=== PATIENT | female | born 1930 | race Caucasian/White ===

== ENCOUNTER → 2019-01-31 | Outpatient (CLI) | payer MEDICARE, BC ==
--- NOTE | 2019-01-31 17:23 | Diagnostic Imaging Report ---
Renal ultrasound dated 01/31/2019. History: Renal cyst Comparison: 09/27/2015 Discussion: Transverse and longitudinal images of the kidneys were obtained demonstrating normal renal sizes and echogenicities. There is no evidence of hydronephrosis, mass or renal calculus. The right kidney measures 9.9 x 3.7 x 4.6 cm and the left kidney measures 9.2 x 4.2 x 2.8 cm. Right renal cortex measures 1 cm and the left cortex measures 1.2 cm. Left renal cyst previously identified is not seen on this study. The urinary bladder is unremarkable. There is no evidence of free fluid. IMPRESSION: Normal renal ultrasound. Signed by: Dr. Terence Malone DO on 01/31/2019 5:19 PM
== END ==
LOC: US 14:22
PROVIDERS: ATTEND Urology
DX: N28.1 Cyst of kidney, acquired (principal)
CPT/HCPCS: 76770

== ENCOUNTER 2019-08-15 16:14 | Inpatient (IN) | payer MEDICARE, BC ==
[~2019-08-15] VITALS: Ht 160 cm; Wt 51.7 kg
--- OUTSIDE RECORDS SUMMARY | 2019-08-15 16:16 | XMS REPORT | Clinical Summary ---
Author Author [facility] Address Unknown Phone Unavailable Care Team Providers Care Disaster Response Director Name Role Phone Miguel Brush MD PCP Allergies Comments Active Allergy Reactions Severity Noted Date Zolpidem 10/15/2017 Amiodarone 10/15/2017 Aspirin 10/15/2017 IV contrast Iodine 10/15/2017 Lidocaine 10/15/2017 Penicillins 10/15/2017 Medications End Date Status Medication Sig Dispensed Refills Start Date Active losartan (COZAAR) 25 MG Take 25 mg by 0 tablet mouth 2 (two) 7 times a day. Active potassium chloride Take 10 mEq 0 (KLOR-CON) 10 MEQ CR by mouth 7 tablet every morning. Active metoprolol succinate XL Take 25 mg by 0 (TOPROL-XL) 25 mg 24 hr mouth 2 (two) 7 tablet times a day. Active XARELTO 15 mg tablet Take 15 mg by 0 mouth daily. 7 Active pantoprazole (PROTONIX) Take 40 mg by 0 40 MG EC tablet mouth every 7 morning. Active furosemide (LASIX) 20 mg Take 20 mg by 0 tablet mouth every 7 morning. Active SPIRIVA WITH HANDIHALER Place 1 puff 0 18 mcg per inhalation into inhaler 7 capsule and inhale every morning. Active PROLIA 60 mg/mL syringe Inject 60 mg 0 syringe as directed 7 every 6 (six) months. Active Problems Problem Noted Date Dehydration 10/15/2017 Family History Medical History Relation Name Comments Cancer Brother Hernia Brother Cancer Father Stroke Father Cancer Mother Stroke Mother COPD Sister Mental illness Sister Relation Name Status Comments Brother Father Mother Sister Social History Date Tobacco Use Types Packs/Day Years Used Quit: 10/15/1981 Former Smoker Smokeless Tobacco: Never Used Drinks/Week oz/Week Comments Alcohol Use stopped drinking 1980 No Sex Assigned at Date Recorded Not on file Industry Job Start Date Occupation Not on file Not on file Not on file Travel End Travel History Travel Start No recent travel history available. Last Filed Vital Signs Not on file Plan of Treatment Health Maintenance Due Date Last Done Comments SHINGLES VACCINES (#1) 1981 65+ PNEUMOCOCCAL VACCINE 1996 (1 of 2 - PCV13) INFLUENZA VACCINE 06/19/2019 Results Not on fileafter 08/14/2018 Insurance Type Payer Benefit Subscriber ID Effective Phone Address Plan / Dates Group Medicare MEDICARE MEDICARE xxxxxxxxxx 1996-P [place], PART A AND resent [place] B PPO BCBS BCBS xxxxxxxxxxxx 2012-P CHOICE resent PPO/PETE JAMES PPO ([place]) [place] [address] Advance Directives For more information, please contact: [phone] Patient Director Of Field Coordination Explanation Type Date Recorded Advance Directives, 10/15/2017 3:27 PM Living Will and Medical Power of Entry Level Assistant Manager Date Inactivated Comments Code Status Date Activated 10/16/2017 6:39 PM Full Code 10/15/2017 6:15 PM Code Status decision reached by: Patient
--- OUTSIDE RECORDS SUMMARY | 2019-08-15 16:17 | XMS REPORT ---
Author Author [facility] Address Unknown Phone Unavailable Care Team Providers Care [employer] Name Role Phone BRE JACK Unavailable Unavailable Payers Payer Name Policy Type Policy Number Effective Date Expiration Date Problems This patient has no known problems. Allergies, Adverse Reactions, Alerts Allergy Name Allergy Type Status Severity Reaction(s) Onset Date Inactive Date Treating Clinician Comments hydralazine DA Active 2018-12-24 00:00:00 Iodinated Contrast- Oral and IV Dye DA Active 2018-06-20 00:00:00 lidocaine DA Active ID 2018-06-20 00:00:00 aspirin DA Active ID 2018-06-20 00:00:00 clindamycin DA Active ID 2018-06-20 00:00:00 azithromycin DA Active 2018-06-20 00:00:00 penicillin G DA Active ID 2018-06-20 00:00:00 ALMONDS DA Active U 2008-08-06 00:00:00 CAFFEINE DA Active U 2008-08-06 00:00:00 CHILI PEPPERS DA Active U 2008-08-06 00:00:00 CITRUS FRUITS DA Active U 2008-08-06 00:00:00 NUTS - ALL TYPES DA Active U 2008-08-06 00:00:00 SHELLFISH DA Active U 2008-08-06 00:00:00 SHRIMP DA Active U 2008-08-06 00:00:00 Medications This patient has no known medications. Results Test Description Test Time Test Comments Text Results Atomic Results Result Comments US RENAL RETROPERITONEAL COMP 2019-01-31 17:17:[address] [address] Patient Name: MYRON ROQUE MR #: [id number] : 1930 Age/Sex: 88/F Req #: [id number] [facility] Physician: Ordered by: BRE JACK MD Report #: [id number] Location: Room/Bed: Procedure: [id number] US/US RENAL RETROPERITONEAL COMP Exam Date: 01/31/19 Exam Time: 1454 REPORT STATUS: Signed Renal ultrasound dated 01/31/2019. History: Renal cyst Comparison: 09/27/2015 Discussion: Transverse and longitudinal images of the kidneys were obtained demonstrating normal renal sizes and echogenicities. There is no evidence of hydronephrosis, mass or renal calculus. The right kidney measures 9.9 x 3.7 x 4.6 cm and the left kidney measures 9.2 x 4.2 x 2.8 cm. Right renal cortex measures 1 cm and the left cortex measures 1.2 cm. Left renal cyst previously identified is not seen on this study. The urinary bladder is unremarkable. There is no evidence of free fluid. IMPRESSION: Normal renal ultrasound. Signed by: Dr. Phillip Malone DO on 01/31/2019 5:19 PM Dictated By: PHILLIP MALONE DO 18 Transcribed By: KARO on 01/31/191718 COPY TO: BRE JACK MD CBC W/AUTO DIFF 2018-12-26 07:37:00 WHITE BLOOD CELL (test code=WBC) 6.53 x10 3/uL 4.5-11.0 RED BLOOD CELL (test code=RBC) 3.92 x10 6/uL 3.54-5.02 HEMOGLOBIN (test code=HGB) 12.5 g/dL 11.0-15.0 HEMATOCRIT (test code=HCT) 38.5 % 33.0-45.0 MEAN CELL VOLUME (test code=MCV) 98.2 fL 81.0-99.0 MEAN CELL HGB (test code=MCH) 31.9 pg 27.0-33.0 MEAN CELL HGB CONCETRATION (test code=MCHC) 32.5 g/dL 33.0-37.0 RED CELL DISTRIBUTION WIDTH CV (test code=RDW) 13.6 % 11.5-14.5 RED CELL DISTRIBUTION WIDTH SD (test code=RDW-SD) 49.1 fL 37.0-54.0 PLATELET COUNT (test code=PLT) 239 x10 3/uL 150-400 MEAN PLATELET VOLUME (test code=MPV) 10.4 fL 7.0-9.0 NEUTROPHIL % (test code=NT%) 46.2 % 56.0-77.0 IMMATURE GRANULOCYTE % (test code=IG%) 0.2 % 0.0-2.0 LYMPHOCYTE % (test code=LY%) 34.8 % 14.0-32.0 MONOCYTE % (test code=MO%) 9.3 % 4.8-9.0 EOSINOPHIL % (test code=EO%) 8.6 % 0.3-3.7 BASOPHIL % (test code=BA%) 0.9 % 0.0-2.0 NUCLEATED RBC % (test code=NRBC%) 0.0 % 0-0 NEUTROPHIL # (test code=NT#) 3.02 x10 3/uL 2.0-7.6 IMMATURE GRANULOCYTE # (test code=IG#) 0.01 x10 3/uL 0.00-0.03 LYMPHOCYTE # (test code=LY#) 2.27 x10 3/uL 1.0-3.8 MONOCYTE # (test code=MO#) 0.61 x10 3/uL 0.1-0.8 EOSINOPHIL # (test code=EO#) 0.56 x10 3/uL 0.0-0.2 BASOPHIL # (test code=BA#) 0.06 x10 3/uL 0.0-0.2 NUCLEATED RBC # (test code=NRBC#) 0.00 x10 3/uL 0.0-0.1 MANUAL DIFF REQUIRED (test code=MDIFF) NO BASIC METABOLIC [id number] 06:13:00* Test Item Value Reference Range Comments SODIUM (test code=NA) 139 mEq/L 134-147 POTASSIUM (test code=K) 3.9 mEq/L 3.4-5.0 CHLORIDE (test code=CL) 106 mEq/L 100-108 CARBON DIOXIDE (test code=CO2) 29 mEq/L 21-33 ANION GAP (test code=GAP) 8 0-20 GLUCOSE (test code=GLU) 82 mg/dL 70-110 BLOOD UREA NITROGEN (test code=BUN) 23 mg/dL 7-18 GLOMERULAR FILTRATION RATE (test code=GFR) 59.2 70-80 Units of measure=ml/min/1.73 m2 CREATININE (test code=CREAT) 0.9 mg/dL 0.6-1.3 CALCIUM (test code=CA) 8.3 mg/dL 8.0-10.5 LIPID PROFILE (CORONARY RISK)2018-12-25 17:00:00* Test Item Value Reference Range Comments TRIGLYCERIDES (test code=TRIG) 91 mg/dL 40-150 CHOLESTEROL (test code=CHOL) 181 mg/dL <200 CHOLESTEROL/HDL RATIO (test code=CHOLHDL) 2.78 RATIO 3.27-4.44 RISK ASSOCIATED WITH CHOL/HDL RATIOS: RISK MALE FEMALE1/2 AVERAGE 3.43 3.27AVERAGE 4.97 4.442X AVERAGE 9.55 7.053X AVERAGE 23.39 11.04 NOTE THAT THE REFERENCE VALUE IS RELATEDTO RISK LEVELS RECOMMENDED BY THE NATL.HEART, LUNG, AND BLOOD INST. HDL CHOLESTEROL (test code=HDL) 65.0 mg/dL 39-96 LIPOPROTEIN LDL (test code=LDL) 103 mg/dL 0-100 <100 [id number] NEAR OPTIMAL/ABOVE [id number] HIGH>FC=804 VERY HIGH*Guidelines provided by the National Cholesterol EducationProgram Adult Treatment Panel III [id number] 17:00:00* Test Item Value Reference Range Comments MAGNESIUM (test code=MAG) 1.90 mg/dL 1.8-2.4 VITAMIN D [id number] 17:00:00* Test Item Value Reference Range Comments VITAMIN D 25-HYDROXY (test code=VITD25) 47.9 ng/mL 30-100 B-TYPE NATRIURETIC [id number] 16:39:00* Test Item Value Reference Range Comments B-TYPE NATRIURETIC PEPTIDE (test code=BNP) 261.0 PG/ML 0-100 LIPID PROFILE (CORONARY RISK)2018-12-25 16:33:00* Test Item Value Reference Range Comments TRIGLYCERIDES (test code=TRIG) 91 mg/dL 40-150 CHOLESTEROL (test code=CHOL) 181 mg/dL <200 CHOLESTEROL/HDL RATIO (test code=CHOLHDL) 2.78 RATIO 3.27-4.44 RISK ASSOCIATED WITH CHOL/HDL RATIOS: RISK MALE FEMALE1/2 AVERAGE 3.43 3.27AVERAGE 4.97 4.442X AVERAGE 9.55 7.053X AVERAGE 23.39 11.04 NOTE THAT THE REFERENCE VALUE IS RELATEDTO RISK LEVELS RECOMMENDED BY THE NATL.HEART, LUNG, AND BLOOD INST. HDL CHOLESTEROL (test code=HDL) 65.0 mg/dL 39-96 LIPOPROTEIN LDL (test code=LDL) 103 mg/dL 0-100 <100 [id number] NEAR OPTIMAL/ABOVE [id number] HIGH>CQ=074 VERY HIGH*Guidelines provided by the National Cholesterol EducationProgram Adult Treatment Panel III [id number] 16:33:00* Test Item Value Reference Range Comments MAGNESIUM (test code=MAG) 1.90 mg/dL 1.8-2.4 VITAMIN D [id number] 16:33:00* Test Item Value Reference Range Comments VITAMIN D 25-HYDROXY (test code=VITD25) ng/mL 30-100 HGBA1C%2018-12-25 16:33:00* Test Item Value Reference Range Comments HGBA1C% (test code=HGBA1C%) 5.7 %A1C 4.8-6.0 BASIC METABOLIC [id number] 10:09:00* Test Item Value Reference Range Comments SODIUM (test code=NA) 142 mEq/L 134-147 POTASSIUM (test code=K) 3.9 mEq/L 3.4-5.0 CHLORIDE (test code=CL) 111 mEq/L 100-108 CARBON DIOXIDE (test code=CO2) 27 mEq/L 21-33 ANION GAP (test code=GAP) 8 0-20 GLUCOSE (test code=GLU) 87 mg/dL 70-110 BLOOD UREA NITROGEN (test code=BUN) 18 mg/dL 7-18 GLOMERULAR FILTRATION RATE (test code=GFR) 79.2 70-80 Units of measure=ml/min/1.73 m2 CREATININE (test code=CREAT) 0.7 mg/dL 0.6-1.3 CALCIUM (test code=CA) 8.1 mg/dL 8.0-10.5 [id number] 08:17:00* Test Item Value Reference Range Comments TROPONIN-I (test code=TROPI) 0.033 ng/mL 0.000-0.045 Negative: <=0.045 Positive: >=0.046 Correlation with serial results, other cardiac markers andclinical findings is necessary to determine the clinicalsignificance of this result. Results using different methodologies should not be comparedto one another as quantitative results may vary by method. COMMENTS: 3 troponins total (including troponin done in ED)[id number] 06:32:00* Test Item Value Reference Range Comments TROPONIN-I (test code=TROPI) 0.038 ng/mL 0.000-0.045 Negative: <=0.045 Positive: >=0.046 Correlation with serial results, other cardiac markers andclinical findings is necessary to determine the clinicalsignificance of this result. Results using different methodologies should not be comparedto one another as quantitative results may vary by method. COMMENTS: 3 troponins total (including troponin done in ED)PROCALCITONIN (PCT) 2018-12-20 00:21:00* Test Item Value Reference Range Comments PROCALCITONIN (PCT) (test code=PROCAL) < 0.05 ng/mL 0.00-0.05 PROCALCITONIN (PCT) NORMAL RANGE (ADULT): <0.05 NG/ML. * a concentration <0.5 ng/mL represents a low risk of severe sepsis and/or septic shock.* a concentration >2 ng/mL represents a high risk of severe sepsis and/or septic shock.Nevertheless, concentrations <0.5 ng/mL do not exclude aninfection, on account of localized infections (withoutsystemic signs) which can be associated with such lowconcentrations, or a systemic infection in its initialstages (< 6 hours). Furthermore, increased procalcitonincan occur without infection. PCT concentrations between 0.5and 2.0 ng/mL should be interpreted taking into account thepatient's history. It is recommended to retest PCT within6-24 hours if any concentrations <2 ng/mL are obtained. TROPONIN-I [id number] 23:31:00* Test Item Value Reference Range Comments TROPONIN-I RAPID (test code=TROPIRAP) 0.00 ng/mL 0.00-0.08 Per[facility] by certified leak operator paraffin [facility] Global Task Force with joint leadership from the EuropeanSociety of Cardiology (ESC), the [place] College [employer]iology Foundation (ACCF), the [place] Heart Association(AHA) and the World Heart Federation (WHF) refined past criteria of myocardial infarction (ID) with a universal definition of myocardial infarction that supports the use of cTnI as a preferred biomarker for myocardial injury. The universal definition of ID, according to this taskforce, is defined as a typical rise and gradual fall ofcardiac biomarkers (preferably troponin) with at least onevalue above the 99th percentile of the upper reference limit (URL) together with evidence of myocardial ischemia with at least one of the following:* ischemic symptoms,* pathological Q waves on electrocardiogram (ECG),* ischemic ECG changes,* or imaging evidence of new loss of viable myocardium or new regional wall motion abnormality. An elevated troponin value alone is not sufficient todiagnose a myocardial infarction. Rather, the patient sclinical presentation (history, physical exam) and ECGshould be used in conjunction with troponin in thediagnostic evaluation of suspected myocardial infarction. Aserial sampling protocol is recommended to facilitate the identification of temporal changes in troponin levels characteristic of ID. CBC W/AUTO [id number] 23:23:00* Test Item Value Reference Range Comments WHITE BLOOD CELL (test code=WBC) 7.87 x10 3/uL 4.5-11.0 RED BLOOD CELL (test code=RBC) 4.08 x10 6/uL 3.54-5.02 HEMOGLOBIN (test code=HGB) 12.9 g/dL 11.0-15.0 HEMATOCRIT (test code=HCT) 40.6 % 33.0-45.0 MEAN CELL VOLUME (test code=MCV) 99.5 fL 81.0-99.0 MEAN CELL HGB (test code=MCH) 31.6 pg 27.0-33.0 MEAN CELL HGB CONCETRATION (test code=MCHC) 31.8 g/dL 33.0-37.0 RED CELL DISTRIBUTION WIDTH CV (test code=RDW) 13.5 % 11.5-14.5 RED CELL DISTRIBUTION WIDTH SD (test code=RDW-SD) 49.5 fL 37.0-54.0 PLATELET COUNT (test code=PLT) 230 x10 3/uL 150-400 MEAN PLATELET VOLUME (test code=MPV) 9.6 fL 7.0-9.0 NEUTROPHIL % (test code=NT%) 70.8 % 56.0-77.0 IMMATURE GRANULOCYTE % (test code=IG%) 0.4 % 0.0-2.0 LYMPHOCYTE % (test code=LY%) 11.1 % 14.0-32.0 MONOCYTE % (test code=MO%) 7.1 % 4.8-9.0 EOSINOPHIL % (test code=EO%) 9.8 % 0.3-3.7 BASOPHIL % (test code=BA%) 0.8 % 0.0-2.0 NUCLEATED RBC % (test code=NRBC%) 0.0 % 0-0 NEUTROPHIL # (test code=NT#) 5.58 x10 3/uL 2.0-7.6 IMMATURE GRANULOCYTE # (test code=IG#) 0.03 x10 3/uL 0.00-0.03 LYMPHOCYTE # (test code=LY#) 0.87 x10 3/uL 1.0-3.8 MONOCYTE # (test code=MO#) 0.56 x10 3/uL 0.1-0.8 EOSINOPHIL # (test code=EO#) 0.77 x10 3/uL 0.0-0.2 BASOPHIL # (test code=BA#) 0.06 x10 3/uL 0.0-0.2 NUCLEATED RBC # (test code=NRBC#) 0.00 x10 3/uL 0.0-0.1 MANUAL DIFF REQUIRED (test code=MDIFF) NO SLIDE REVIEWED, CONSISTENT WITH AUTO DIFF. COMPREHENSIVE METABOLIC [id number] 23:13:00* Test Item Value Reference Range Comments SODIUM (test code=NA) 136 mEq/L 134-147 POTASSIUM (test code=K) 4.4 mEq/L 3.4-5.0 CHLORIDE (test code=CL) 105 mEq/L 100-108 CARBON DIOXIDE (test code=CO2) 31 mEq/L 21-33 ANION GAP (test code=GAP) 4 0-20 GLUCOSE (test code=GLU) 122 mg/dL 70-110 BLOOD UREA NITROGEN (test code=BUN) 30 mg/dL 7-18 GLOMERULAR FILTRATION RATE (test code=GFR) 47.0 70-80 Units of measure=ml/min/1.73 m2 CREATININE (test code=CREAT) 1.1 mg/dL 0.6-1.3 TOTAL PROTEIN (test code=PROT) 8.0 g/dL 6.4-8.2 ALBUMIN (test code=ALB) 3.10 g/dL 3.4-5.0 CALCIUM (test code=CA) 8.7 mg/dL 8.0-10.5 BILIRUBIN TOTAL (test code=BILT) 0.30 mg/dL 0.0-1.0 SGOT/AST (test code=AST) 57 IUnit/L 15-37 SGPT/ALT (test code=ALT) 45 IUnit/L 15-65 ALKALINE PHOSPHATASE TOTAL (test code=ALKP) 79 IUnit/L 20-125 URINALYSIS [id number] 23:07:00* Test Item Value Reference Range Comments UA COLOR (test code=COLU) YELLOW YEL/STRAW UA APPEARANCE (test code=APPU) CLOUDY CLEAR UA GLUCOSE DIPSTICK (test code=DGLUU) NEGATIVE NEGATIVE UA BILIRUBIN DIPSTICK (test code=BILU) NEGATIVE NEGATIVE UA KETONE DIPSTICK (test code=KETU) NEGATIVE NEGATIVE UA SPECIFIC GRAVITY (test code=SGU) 1.012 1.005-1.030 UA BLOOD DIPSTICK (test code=ANDRE) NEGATIVE NEGATIVE UA PH DIPSTICK (test code=LINSEY) 5.0 5.0-7.0 UA PROTEIN DIPSTICK (test code=PROU) NEGATIVE NEGATIVE UA UROBILINIOGEN DIPSTICK (test code=URO) 0.2 mg/dL 0.2-1.0 UA NITRITE DIPSTICK (test code=JESSICA) NEGATIVE NEGATIVE UA LEUKOCYTE ESTERASE DIPSTICK (test code=LEUU) NEGATIVE NEGATIVE UA WBC (test code=WBCU) 0-3 WBC/HPF 0-3 UA RBC (test code=RBCU) 4-10 RBC/HPF 0-3 UA BACTERIA (test code=BACU) TRACE /HPF NONE SEEN UA SQUAMOUS CELLS (test code=SQU) NONE SEEN /HPF NONE SEEN UA MUCUS (test code=MUCU) TRACE /LPF NONE SEEN COMMENTS: Clean CatchUA CULT [id number] 23:07:00* Test Item Value Reference Range Comments UA CULTURE NEEDED? (test code=UACULT) NO, WBC<10 Criteria Culture Chk Criteria not met, Urine Culture cancelled. COMMENTS: Clean CatchPROTHROMBIN [id number] 23:03:00* Test Item Value Reference Range Comments PROTHROMBIN TIME PATIENT (test code=PTP) 11.9 SECONDS 9.3-12.9 INTERNATIONAL NORMAL RATIO (test code=INR) 1.1 0.8-1.2 TARGET INR BY INDICATION Indication INR1. Prophylaxis of venous thrombosis 2.0 - 3.0 (orthopedic surgery), Prophylaxis of venous thrombosis (other than high-risk surgery), Treatment of Deep Vein Thrombosis/Pulmonary Embolism, Prevention of systemic embolism - Tissue heart valves, Acute Myocardial Infarction (to prevent systemic embolism), Valvular heart disease, Atrial Fibrillation, Bileaflet mechanical valve in aortic position.2. Mechanical prosthetic valves (high risk), 2.5 - 3.5 Presence of Lupus Anticoagulant or Antiphospholipid Antibodies, Prevention of systemic embolism - Acute Myocardial Infarction (to prevent recurrent infarct). - XR CHEST 1 [id number] 22:57:00 FAX: Miguel Curiel MD [phone] [place]: St: REG FAX: Darwin De La O MD [phone] Name: MYRON ROQUE [facility] : 1930 Age/S: 88/F [address] [place] [address] Unit #: [id number] Loc: G.ERS[address] [place] [address] Phys: Darwin De La O MD Acct: [id number] Dis Date: Status: REG ER PHONE #: [phone] Exam Date: 12/19/2018 3843 FAX #: [phone] Reason: shaking chills / cough / wheezing / COPD EXAMS: CPT CODE: [id number] XR CHEST 1 V [id number] FRONTAL CHEST, 12/19/2018 9:44 PM : HISTORY: shaking chills / cough / wheezing / COPD. COMPARISON: 07/20/2018 FINDINGS: The heart is stable size. Aortic atherosclerosis. 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 No acute consolidation. Stable right apical pleural parenchymal scarring. IMPRESSION: 1. No radiographic evidence of acute cardiopulmonary process. Stable chronic changes. SL: DELBERT at 2557 Reported and signed by: Rupesh Boland M.D. CC: Miguel Willams M.D.; Darwin De La O MD Technologist: RT Leeroy(R) Trnscrd Date/Time/By: 12/19/2018 (6118) : By: [email or web address] Orig Print D/T: S: 12/19/2018 (5255) PAGE 1 Signed Report CBC W/AUTO [id number] 22:52:00* Test Item Value Reference Range Comments WHITE BLOOD CELL (test code=WBC) 7.87 x10 3/uL 4.5-11.0 RED BLOOD CELL (test code=RBC) 4.08 x10 6/uL 3.54-5.02 HEMOGLOBIN (test code=HGB) 12.9 g/dL 11.0-15.0 HEMATOCRIT (test code=HCT) 40.6 % 33.0-45.0 MEAN CELL VOLUME (test code=MCV) 99.5 fL 81.0-99.0 MEAN CELL HGB (test code=MCH) 31.6 pg 27.0-33.0 MEAN CELL HGB CONCETRATION (test code=MCHC) 31.8 g/dL 33.0-37.0 RED CELL DISTRIBUTION WIDTH CV (test code=RDW) 13.5 % 11.5-14.5 RED CELL DISTRIBUTION WIDTH SD (test code=RDW-SD) 49.5 fL 37.0-54.0 PLATELET COUNT (test code=PLT) 230 x10 3/uL 150-400 MEAN PLATELET VOLUME (test code=MPV) 9.6 fL 7.0-9.0 LYMPHOCYTE % (test code=LY%) % 14.0-32.0 MANUAL DIFF REQUIRED (test code=MDIFF) LACTIC ACID [id number] 22:50:00* Test Item Value Reference Range Comments LACTIC ACID POC (test code=LACTP) 0.7 MMOL/L 0.90-1.70 Performed by certified leak operator paraffin plant at [facility] CHEMISTRY 8 [id number] 22:49:00* Test Item Value Reference Range Comments ISTAT-SODIUM (test code=NAP) MMOL/L 134-147 ISTAT-POTASSIUM (test code=KP) MMOL/L 3.4-5.0 ISTAT-CHLORIDE (test code=CLP) MMOL/L 100-108 ISTAT CARBON DIOXIDE (test code=ISTAT-CO2) mmol/L 21-33 ISTAT CALCIUM IONIZED (test code=ISTAT-KANDY) MG/DL 1.12-1.32 ISTAT-GLUCOSE (test code=GLUP) MG/DL 70-110 ISTAT-BUN (test code=BUNP) MG/DL 7-18 BEDSIDE CREATININE (test code=CREATBED) MG/DL 0.6-1.3 GLOMERULAR FILTRATION RATE POC (test code=GFRBED) 56 ML/MIN CHEMISTRY 8 [id number] 22:49:00* Test Item Value Reference Range Comments ISTAT-SODIUM (test code=NAP) 138 MMOL/L 134-147 ISTAT-POTASSIUM (test code=KP) 4.4 MMOL/L 3.4-5.0 ISTAT-CHLORIDE (test code=CLP) 101 MMOL/L 100-108 Performed by certified leak operator paraffin plant at [facility] ISTAT CARBON DIOXIDE (test code=ISTAT-CO2) 30.0 mmol/L 21-33 ISTAT CALCIUM IONIZED (test code=ISTAT-KANDY) 1.09 MG/DL 1.12-1.32 ISTAT-GLUCOSE (test code=GLUP) 120 MG/DL 70-110 ISTAT-BUN (test code=BUNP) 29 MG/DL 7-18 BEDSIDE CREATININE (test code=CREATBED) 1.0 MG/DL 0.6-1.3 GLOMERULAR FILTRATION RATE POC (test code=GFRBED) 56 ML/MIN
[2019-08-15] MEDS ORDERED: VANCOMYCIN 1GM/NS 250 ML 250 ML IV STA (17:56)
[2019-08-15 18:52] LABS: BILIRUBIN,URINE NEGATIVE (NEGATIVE); CLARITY,URINE SL CLOUDY (CLEAR); COLOR,URINE YELLOW (YELLOW); KETONES,URINE NEGATIVE (NEGATIVE); LEUKOCYTE ESTERASE ,URINE NEGATIVE (NEGATIVE); NITRITE,URINE NEGATIVE (NEGATIVE); PROTEIN,URINE DIPSTICK NEGATIVE (NEGATIVE); URINE UROBILINOGEN 0.2 mg/dL (0.2 - 1)
[2019-08-15 19:06] LABS: WBC,URINE (MAN) 0-5 /HPF (0-5)
[2019-08-15] MEDS ORDERED: SODIUM CHLORIDE 0.9% 1000ML 1,000 ML IV ONE (19:15)
[2019-08-15] MEDS ORDERED: ONDANSETRON HCL INJ 2MG/ML 2ML 2 MG/ML VIAL IV PRN (19:15)
[2019-08-15 19:16] LABS: BASOPHILS % 0.4 % (0.0-1.0); EOSINOPHILS # (AUTO) 0.2 (0.0-0.4); EOSINOPHILS % 2.1 % (0.0-6.0); HEMATOCRIT 41.1 % (34.2-44.1); HEMOGLOBIN 13.4 g/dL (12.0-16.0); LYMPHOCYTES # (AUTO) 1.4 (1.0-3.2); LYMPHOCYTES % 18.1 % (18.0-39.1); MEAN CORPUSCULAR HEMOGLOBIN 31.6 pg (28-32); MEAN CORPUSCULAR HGB CONC 32.6 g/dL (31-35); MEAN CORPUSCULAR VOLUME 96.9 fL (81-99); MONOCYTES # (AUTO) 0.7 (0.2-0.8); NEUTROPHILS # (AUTO) 5.3 (2.1-6.9); NEUTROPHILS % 70.1 % (38.7-80.0); PLATELET COUNT 245 x10e3/uL (140-360); RED BLOOD COUNT 4.24 x10e6/uL (3.6-5.1); RED CELL DISTRIBUTION WIDTH 12.6 % (11.7-14.4)
[2019-08-15 19:23] LABS: INR 1.47; PROTHROMBIN TIME 18.4 seconds (11.9-14.5)
[2019-08-15 19:24] LABS: PARTIAL THROMBOPLASTIN TIME 44.1 seconds (23.8-35.5)
[2019-08-15 19:34] LABS: ALBUMIN 3.2 g/dL (3.5-5.0); ALBUMIN/GLOBULIN RATIO 0.8 (0.8-2.0); CALCIUM 9.2 mg/dL (8.4-10.2); CREATININE, SERUM 1.3 mg/dL (0.57-1.11); MAGNESIUM 2.1 MG/DL (1.3-2.1)
[2019-08-15 19:40] LABS: CREATINE KINASE MB 1.8 ng/mL (0-5.0)
[2019-08-15 19:51] LABS: ANION GAP 13.5 mmol/L (8-16); POTASSIUM 4.5 mmol/L (3.5-5.1)
--- OUTSIDE RECORDS SUMMARY | 2019-08-15 21:20 | XMS REPORT | Clinical Summary ---
Author Author [facility] Organization [facility] Address Unknown Phone Unavailable Care Team Providers Care [employer] Founder Name Role Phone Miguel Brush MD PCP [...] xxxxxxxxxxxx 2012-P CHOICE resent PPO/PETE JAMES PPO ([place]) [place] [address] Advance Directives For more information, please contact: [phone] Patient Machine Fur Cleaner Explanation Type Date Recorded Advance Directives, 10/15/2017 3:27 PM Living Will and Medical Power of Bung Remover Date Inactivated Comments Code Status Date Activated 10/16/2017 6:39 PM Full Code 10/15/2017 6:15 PM Code Status decision reached by: Patient
[2019-08-15 21:48] VITALS: BP 144/64
[2019-08-15 22:44] VITALS: BP 144/64
[2019-08-15 22:57] VITALS: BP 144/64
[2019-08-15] MEDS ORDERED: BREO ELLIPTA INH (23:28)
[2019-08-15] MEDS ORDERED: XARELTO20 MG PO (23:28)
[2019-08-15] MEDS ORDERED: METOPROLOL TART50 MG PO (23:28)
[2019-08-15] MEDS ORDERED: POTASSIUM CHLO10 ME1 PO (23:28)
[2019-08-15] MEDS ORDERED: FUROSEMIDE40 MG PO (23:28)
[2019-08-15] MEDS ORDERED: AMLODIPINE BESYL5 MG PO (23:28)
[2019-08-15] MEDS ORDERED: PANTOPRAZOLE SO40 MG PO (23:28)
[2019-08-15] MEDS ORDERED: LOSARTAN-HCTZ1 EACH PO (23:28)
[2019-08-15] MEDS ORDERED: SPIRIVA18 MCG INH (23:28)
[2019-08-16] VITALS (8 sets, daily range): BP systolic 117–141; BP diastolic 60–64
[2019-08-16 06:07] LABS: BASOPHILS # (AUTO) 0.1 (0.0-0.1); BASOPHILS % 0.7 % (0.0-1.0); EOSINOPHILS # (AUTO) 0.3 (0.0-0.4); EOSINOPHILS % 3.7 % (0.0-6.0); HEMOGLOBIN 12.2 g/dL (12.0-16.0); LYMPHOCYTES # (AUTO) 1.3 (1.0-3.2); LYMPHOCYTES % 18.8 % (18.0-39.1); MEAN CORPUSCULAR HEMOGLOBIN 31.4 pg (28-32); MEAN CORPUSCULAR HGB CONC 32.1 g/dL (31-35); MEAN CORPUSCULAR VOLUME 97.7 fL (81-99); MONOCYTES # (AUTO) 0.8 (0.2-0.8); MONOCYTES % 11.5 % (4.4-11.3); NEUTROPHILS # (AUTO) 4.5 (2.1-6.9); PLATELET COUNT 210 x10e3/uL (140-360); RED BLOOD COUNT 3.89 x10e6/uL (3.6-5.1); RED CELL DISTRIBUTION WIDTH 12.5 % (11.7-14.4)
[2019-08-16 06:33] LABS: ALBUMIN 2.6 g/dL (3.5-5.0); ALBUMIN/GLOBULIN RATIO 0.8 (0.8-2.0); ANION GAP 10.9 mmol/L (8-16); CALCIUM 8.3 mg/dL (8.4-10.2); CREATININE, SERUM 0.96 mg/dL (0.57-1.11); POTASSIUM 3.9 mmol/L (3.5-5.1)
[2019-08-16] MEDS ORDERED: VANCOMYCIN 500MG/NS 0.9% 100ML 100 ML IV SCH (07:00)
[2019-08-16 07:13] LABS: CREATINE KINASE MB 0.9 ng/mL (0-5.0)
[2019-08-16] MEDS ORDERED: POTASSIUM CHLORIDE 10MEQ EA PO SCH (10:00)
[2019-08-16] MEDS ORDERED: LOSARTAN POTASSIUM 100 MG TAB PO SCH (10:00)
[2019-08-16] MEDS ORDERED: METOPROLOL TARTRATE 50 MG TAB PO SCH ×2 (10:00→17:00)
[2019-08-16] MEDS ORDERED: TIOTROPIUM 18 MCG INH POWDER INH SCH (10:00)
[2019-08-16] MEDS ORDERED: HYDROCHLOROTHIAZIDE 25 MG TAB PO SCH (10:15)
[2019-08-16] MEDS ORDERED: HYDROCHLOROTHIAZIDE 25 MG TAB ONE (10:15)
[2019-08-16] MEDS ORDERED: FUROSEMIDE 20 MG TAB ONE (10:15)
[2019-08-16] MEDS ORDERED: LOSARTAN POTASSIUM 25 MG TAB ONE (10:16)
[2019-08-16] MEDS ORDERED: METOPROLOL SUCCINATE 50 MG TAB XL ONE (10:16)
[2019-08-16] MEDS ORDERED: RIVAROXABAN 15 MG TABLET PO ONE (10:16)
[2019-08-16] MEDS ORDERED: FUROSEMIDE 40 MG TAB PO SCH (10:30)
[2019-08-16] MEDS: RIVAROXABAN 20 MG TABLET PO SCH (10:37)
[2019-08-16] MEDS: PANTOPRAZOLE SOD 40 MG TABEC PO SCH (10:37)
[2019-08-16] MEDS: AMLODIPINE BESYLATE 5 MG TAB PO SCH (10:37)
[2019-08-16 13:42] LABS: CREATINE KINASE MB 1.7 ng/mL (0-5.0)
--- NOTE | 2019-08-16 15:01 | History and Physical ---
HISTORY OF PRESENT ILLNESS: An 89-year-old female with past medical history positive for COPD, chronic atrial fibrillation, sick sinus syndrome, status post permanent pacemaker placement, came to the hospital complaining of weakness. She was admitted to the hospital with diagnosis of UTI by UA, urine culture completely negative. acute renal insufficiency. REVIEW OF SYSTEMS: CARDIOVASCULAR: No chest pain or palpitation. RESPIRATORY: No shortness of breath. No cough. GASTROINTESTINAL: No nausea, no vomiting, no diarrhea. GENITOURINARY: No frequency. No dysuria. ALLERGIES: SHE IS ALLERGIC TO HYDRALAZINE, AMIODARONE, CONTRAST. SOCIAL HISTORY: She used to smoke. She does not smoke anymore. She does not drink. PAST MEDICAL HISTORY: Positive for hypertension, COPD, chronic atrial fibrillation, sick sinus syndrome, status post permanent pacemaker placement. PHYSICAL EXAMINATION: VITAL SIGNS: Blood pressure 117/61, temperature 97.0, heart rate 73 per minute, respiratory rate 20 per minute, O2 saturation 97%. HEART: Showed irregularly irregular heart rate. Normal S1, S2 sound. LUNGS: Clear bilaterally but significantly decreased bilaterally. ABDOMEN: Soft. EXTREMITIES: Show no evidence of cyanosis or hematoma. LABORATORY DATA: On the BMP; sodium 143, potassium 3.9, chloride 109, CO2 27, BUN 29, creatinine 0.96, glucose 82. On CBC; white count 3.98, hemoglobin 12.2, hematocrit 38.0, platelet count 200,000. PT 18.4, INR 1.47, PTT 44.1. AST 19, ALT 10, total bilirubin 0.8, alkaline phosphatase 77. Chest x-ray showed no evidence of any infiltrates. FINAL IMPRESSION: 1. Acute renal failure. 2. Hypertension. 3. Chronic atrial fibrillation. 4. Chronic obstructive pulmonary disease. PLAN OF TREATMENT: Hydrochlorothiazide and Lasix have been discontinued. Continue also the vancomycin, because there is no evidence of infection. Continue Zofran 4 mg IV q.4 hours as needed, amlodipine 5 mg daily. Continue with Xarelto 15 mg daily, Protonix 40 mg daily, metoprolol 50 mg twice a day. Potassium has been discontinued also because she is not taking any diuretic. Continue losartan 50 mg twice a day and Spiriva 1 inhalation daily. . We are going to repeat a BMP tomorrow. Physical therapy consult to be ordered. MD MAGNOLIA Ahmadi/KALIN /[id number]
[2019-08-16] MEDS: SODIUM CHLORIDE 0.9% 1000ML 1,000 ML IV SCH (16:38)
[2019-08-16] MEDS ORDERED: LOSARTAN PO SCH (17:00)
[2019-08-16] MEDS ORDERED: [UNRECOGNIZED DRUG - OTHER] PO SCH (17:00)
[2019-08-16] MEDS ORDERED: HYDROCHLOROTHIAZIDE PO SCH (17:00)
--- NOTE | 2019-08-16 19:15 | NUR ---
Patient visited in room during nursing rounds. Patient alert and oriented x3. Ambulates in room with 1 person assist and walker prn. Pt states she feels that she is getting better. V/S stable. Daughter at bedside. Call ji within reach.
[2019-08-16] MEDS: METOPROLOL TARTRATE 50 MG TAB PO SCH (21:00)
[2019-08-16] MEDS: LOSARTAN POTASSIUM 100 MG TAB PO SCH (21:15)
[2019-08-17] VITALS: BP 125/61
[2019-08-17] MEDS ORDERED: ACETAMINOPHEN 325 MG TAB PO PRN (01:45)
[2019-08-17 04:00] VITALS: BP 127/61
[2019-08-17] MEDS: SODIUM CHLORIDE 0.9% 1000ML 1,000 ML IV SCH (06:05)
[2019-08-17 06:58] LABS: ANION GAP 9.4 mmol/L (8-16); CREATININE, SERUM 0.97 mg/dL (0.57-1.11); POTASSIUM 3.4 mmol/L (3.5-5.1)
[2019-08-17] MEDS: PANTOPRAZOLE SOD 40 MG TABEC PO SCH (08:00)
[2019-08-17 08:01] VITALS: BP 126/63
[2019-08-17 08:43] VITALS: BP 126/63
[2019-08-17] MEDS ORDERED: POTASSIUM CHLORIDE 10MEQ EA PO SCH (09:00)
[2019-08-17] MEDS ORDERED: PANTOPRAZOLE SOD 40 MG TABEC PO SCH (09:00)
[2019-08-17] MEDS ORDERED: TIOTROPIUM 18 MCG INH POWDER INH SCH (09:00)
[2019-08-17] MEDS ORDERED: FUROSEMIDE 40 MG TAB PO SCH (09:00)
[2019-08-17] MEDS ORDERED: AMLODIPINE BESYLATE 5 MG TAB PO SCH (09:00)
[2019-08-17] MEDS ORDERED: RIVAROXABAN 20 MG TABLET PO SCH (09:00)
[2019-08-17] MEDS: AMLODIPINE BESYLATE 5 MG TAB PO SCH (09:00)
[2019-08-17] MEDS: LOSARTAN POTASSIUM 100 MG TAB PO SCH (09:21)
[2019-08-17] MEDS: METOPROLOL TARTRATE 50 MG TAB PO SCH (09:22)
[2019-08-17] MEDS: RIVAROXABAN 20 MG TABLET PO SCH (09:23)
[2019-08-17 11:56] VITALS: BP 137/63
[2019-08-17] MEDS ORDERED: POTASSIUM CHLORIDE 20 MEQ TAB CR PO SCH (14:00)
--- NOTE | 2019-08-17 15:13 | NUR ---
Pt discharged home at this time. Pt and daughter verbalized understanding of all discharge instructions and follow up appts.
--- NOTE | 2019-08-18 05:54 | Discharge Summary ---
HOSPITAL COURSE: An 89-year-old female, past medical history positive for hypertension, history of atrial fibrillation, COPD, came to the hospital because of fatigue. She was found to have acute renal failure due to dehydration. IV fluids were given. BUN and creatinine returned back to normal. Potassium was low with potassium going to be replaced and the patient is going home today. PHYSICAL EXAMINATION: VITAL SIGNS: Blood pressure 137/63, temperature 97.2, heart rate 69 per minute, respiratory rate 20 per minute, O2 saturation 95%. HEART: Regular rhythm. Normal S1, S2 sound. LUNGS: Clear bilaterally. ABDOMEN: Soft. LABORATORY DATA: On BMP; sodium 140, potassium 3.4, chloride 107, CO2 27, BUN 23, creatinine 0.87, glucose 88. On CBC, white blood count 6.98, hemoglobin 12.2, hematocrit 38.0, platelet count 210,000. PT 18.4, INR 1.47, PTT 44.1. AST 19, ALT 10, total bilirubin 0.8, alkaline phosphatase 77. IMPRESSION: 1. Acute renal failure, which is resolved. 2. Hypertension. 3. Hypokalemia. 4. Chronic atrial fibrillation. 5. Chronic obstructive pulmonary disease. PLAN OF TREATMENT: We are going to replace the potassium. Continue Xarelto 15 mg daily, losartan 50 mg twice a day, Protonix 40 mg daily, Spiriva 1 inhalation daily, metoprolol 50 mg twice a day. The Lasix has been discontinued. We are going to recheck the potassium as an outpatient. She is going home today. Follow up with me in a week. MD MAGNOLIA Ahmadi/KALIN /[id number]
== END 2019-08-17 15:13 | disposition home or self-care (01) | DRG 683 ==
LOC: ER 16:14 → ERHOLD 21:17 → MED/SURG3 21:20
PROVIDERS: ADMIT Internal Medicine; ATTEND Internal Medicine
DX: N17.9 Acute kidney failure, unspecified (principal); D68.9 Coagulation defect, unspecified; I10 Essential (primary) hypertension; J44.9 Chronic obstructive pulmonary disease, unspecified; E87.6 Hypokalemia; I48.2 Chronic atrial fibrillation; Z79.01 Long term (current) use of anticoagulants; I49.5 Sick sinus syndrome; Z95.0 Presence of cardiac pacemaker
CPT/HCPCS: 36415; 80048; 80053; 81001; 82550; 82553; 83605; 83735; 84484; 85025; 85610; 85730; 87040; 87086; 93005; 99284; J3370; J7030